=== PATIENT | female | born 1960 | race Caucasian/White ===

== ENCOUNTER 2023-11-09 18:21 | Emergency (ER) | payer OTHER ==
[2023-11-09] MEDS ORDERED: HYDROCODONE/APAP 5/325 MG TAB ONE (18:41)
[2023-11-09] MEDS ORDERED: IBUPROFEN 400 MG TAB ONE (18:41)
--- NOTE | 2023-11-09 19:50 | EDPHYS ---
Physician Documentation [facility] Name: Olesya Gibbs Age: 63 yrs Sex: Female : 1960 Arrival Date: 11/09/2023 Time: 18:21 Bed IW1 Private MD: ED Physician Azael Mcmahon HPI: 11/08 19:18 This 63 yrs old Female presents to ER via Wheelchair with complaints of Fall Injury, rn Arm Pain. 19:18 Details of fall: The patient fell from an upright position, while standing. Onset: The rn symptoms/episode began/occurred just prior to arrival. Associated injuries: The patient sustained Left proximal humerus. Severity of symptoms: At their worst the symptoms were moderate, in the emergency department the symptoms have improved. The patient has not experienced similar symptoms in the past. Patient reports tripped, fall, landed on left arm as it was outstretched. Pain to left upper arm. No head or neck injury no back pain. No rib injury or pain. Denies any elbow or forearm or wrist pain.. Historical: - Allergies: 18:32 No Known Allergies; cm10 - Home Meds: 18:32 None [Active]; cm10 - PMHx: 18:32 None; cm10 - PSHx: 18:32 Partial hysterctomy; cm10 - Immunization history:: Adult Immunizations up to date. - Infectious Disease History:: Denies. - Social history:: Smoking status: Patient denies any tobacco usage or history of. - Family history:: not pertinent. - Hospitalizations: : No recent hospitalization is reported. ROS: 19:18 Constitutional: Negative for fever, chills, and weight loss, Neck: Negative for injury, rn pain, and swelling, Cardiovascular: Negative for chest pain, palpitations, and edema, Respiratory: Negative for shortness of breath, cough, wheezing, and pleuritic chest pain, Abdomen/GI: Negative for abdominal pain, nausea, vomiting, diarrhea, and constipation, Back: Negative for injury and pain, MS/Extremity: Positive for left upper arm pain and injury Skin: Negative for injury, rash, and discoloration, Neuro: Negative for headache, weakness, numbness, tingling, and seizure, Exam: 19:18 Constitutional: This is a well developed, well nourished patient who is awake, alert, rn holding left arm in passive flexion Head/Face: Normocephalic, atraumatic. Neck: No midline cervical tenderness MS/ Extremity: Pulses equal, no cyanosis. Neurovascular intact. Mild tenderness proximal humerus. No clavicular or scapular tenderness. No painful range of motion at the left elbow or wrist. No forearm tenderness or hand tenderness. No open wounds. No significant swelling or ecchymosis Neuro: Awake and alert, GCS 15 Vital Signs: 18:30 BP 124 / 60; Pulse 66; Resp 18; Temp 96.5; Pulse Ox 100% on R/A; Weight 68.04 kg; cm10 Height 5 ft. 2 in. ; Pain 8/10; 19:58 BP 121 / 60; Pulse 65; Resp 17; Temp 97; Pulse Ox 100% ; Pain 2/10; bm8 18:30 Body Mass Index 27.44 (68.04 kg, 157.48 cm) cm10 18:30 Pain Scale: Adult cm10 19:58 Pain Scale: Adult bm8 [place] Coma Score: 19:58 Eye Response: spontaneous(4). Motor Response: obeys commands(6). Verbal Response: bm8 oriented(5). Total: 15. MDM: 18:41 Patient medically screened. rn 19:46 Differential diagnosis: contusion, fracture, sprain, strain. Data reviewed: vital rn signs, nurses notes, radiologic studies, plain films, and as a result, I will discharge patient. Counseling: I had a detailed discussion with the patient and/or guardian regarding the historical points, exam findings, and any diagnostic results supporting the discharge/admit diagnosis, radiology results, the need for outpatient follow up, to return to the emergency department if symptoms worsen or persist or if there are any questions or concerns that arise at home. Response to treatment: the patient's symptoms have mildly improved after treatment, and as a result, I will discharge patient. Special discussion: I discussed with the patient/guardian in detail that at this point there is no indication for admission to the hospital. It is understood, however, that if the symptoms persist or worsen the patient needs to return immediately for re-evaluation. Based on the history and exam findings, there is no indication for further emergent testing or inpatient evaluation. I discussed with the patient/guardian the need to see the orthopedic surgeon for further evaluation of the symptoms. ED course: X-ray images of the left shoulder show proximal humerus fracture, minimally displaced. Patient much better after shoulder immobilization. Patient not from here so she plans on following up with orthopedics for repeat x-ray and MRI of the shoulder when she gets back home. Return precautions given and understood. Will send home with as needed pain medication. I have personally reviewed all of the results, including but not limited to imaging deemed necessary to safely discharge this patient at this time. All results given to and printed out for patient. I personally went over all the results with the patient and answered all questions. Patient will follow-up with PCP and or specialist as discussed. Return precautions given and understood.. 11/08 18:36 Order name: XRAY Humerus LEFT; Complete Time: 20:00 rn 11/08 18:36 Order name: XRAY Shoulder LEFT 2 view; Complete Time: 20:00 rn 11/08 18:40 Order name: Shoulder Immobilizer; Complete Time: 19:58 rn Administered Medications: 18:43 Drug: Ibuprofen PO 800 mg PO once Route: PO; cm10 19:40 Follow up: Response: No adverse reaction bm8 18:43 Drug: HYDROcodone-acetaminophen PO 5 mg-325 mg 1 tabs PO once Route: PO; cm10 19:40 Follow up: Response: No adverse reaction bm8 Disposition Summary: 11/09/23 19:49 Discharge Ordered Notes: Location: Home rn Problem: new rn Symptoms: have improved rn Condition: Stable rn Diagnosis - Nondisplaced transverse fracture of shaft of humerus, left arm, initial encounter rn for closed fracture Followup: rn - With: Corwin Hannah MD - When: 5 - 6 days - Reason: Recheck today's complaints, Re-evaluation by your physician Discharge Instructions: - Discharge Summary Sheet rn - Humerus Fracture Treated With Immobilization rn Forms: - Medication Reconciliation Form rn - Antibiotic r d intern - Prescription Opioid Use rn - Patient Portal Instructions rn - Leadership Thank You Letter rn Prescriptions: - Tramadol 50 mg Oral tablet - take 1 tablet ORAL route every 8 hours as needed; 15 tablet; Refills: 0, rn Product Selection Permitted Signatures: Dispatcher [employer] EDAzael Meza MD MD rn Martinez, Clarissa, RN RN cm10 McDonald, Brad RN bm8 Corrections: (The following items were deleted from the chart) 18:33 18:32 PSHx: None; cm10 cm10 18:33 18:32 PSHx: Total abdominal hysterectomy; cm10 cm10
--- NOTE | 2023-11-09 19:50 | ER ---
Nurse's Notes [facility] Name: Olesya Gibbs Age: 63 yrs Sex: Female : 1960 Arrival Date: 11/09/2023 Time: 18:21 Bed IW1 Private MD: Diagnosis: Nondisplaced transverse fracture of shaft of humerus, left arm, initial encounter for closed fracture Presentation: 11/08 18:30 Chief complaint: Patient states: Walking up the steps and tripped and fell. Pt states cm10 that she was on the first step. Pt reports landing on her left sided and hearing some pops on her left arm. PT reports pain to her upper left arm. Pt denies hitting head, no LOC. Coronavirus screen: Client denies travel out of the [place] in the last 14 days. At this time, the client does not indicate any symptoms associated with coronavirus-19. Ebola Screen: Patient denies travel to an Ebola-affected area in the 21 days before illness onset. No symptoms or risks identified at this time. Initial Sepsis Screen: Does the patient meet any 2 criteria? No. Patient's initial sepsis screen is negative. Does the patient have a suspected source of infection? No. Patient's initial sepsis screen is negative. Risk Assessment: Do you want to hurt yourself or someone else? Patient reports no desire to harm self or others. Onset of symptoms was November 09, 2023. 18:30 Method Of Arrival: Wheelchair cm10 18:30 Acuity: EARLE 4 cm10 Triage Assessment: 18:33 General: Appears in no apparent distress. comfortable, Behavior is calm, cooperative. cm10 Pain: Complains of pain in left bicep Pain does not radiate. Pain currently is 8 out of 10 on a pain scale. Quality of pain is described as aching, Pain began suddenly. Neuro: No deficits noted. Level of Consciousness is awake, alert, obeys commands, Oriented to person, place, time, situation, Appropriate for age. Respiratory: No deficits noted. Airway is patent Respiratory effort is even, unlabored, Respiratory pattern is regular, symmetrical. Musculoskeletal: Reports pain in left bicep. Historical: - Allergies: 18:32 No Known Allergies; cm10 - Home Meds: 18:32 None [Active]; cm10 - PMHx: 18:32 None; cm10 - PSHx: 18:32 Partial hysterctomy; cm10 - Immunization history:: Adult Immunizations up to date. - Infectious Disease History:: Denies. - Social history:: Smoking status: Patient denies any tobacco usage or history of. - Family history:: not pertinent. - Hospitalizations: : No recent hospitalization is reported. Screenin:58 [facility] ED Fall Risk Assessment (Adult) History of falling in the last 3 months, bm8 including since admission Yes- single mechanical fall (1 pt) Confusion or Disorientation No (0 pts) Intoxicated or Sedated No (0 pts) Impaired Gait No (0 pts) Mobility Assist Device Used No (0 pt) Altered Elimination No (0 pt) Score/Fall Risk Level 0 - 2 = Low Risk Oriented to surroundings, Maintained a safe environment, Educated pt \T\ family on fall prevention, incl call for assistance when getting out of bed. Abuse screen: Denies threats or abuse. Nutritional screening: No deficits noted. Tuberculosis screening: No symptoms or risk factors identified. Assessment: 19:58 Reassessment: Patient appears in no apparent distress at this time. Patient and/or bm8 family updated on plan of care and expected duration. Pain level reassessed. Patient is alert, oriented x 3, equal unlabored respirations, skin warm/dry/pink. shoulder immobilizer applied to left arm. pt stated that she had immediate relief when it was supported Patient states feeling better. Patient states symptoms have improved. Vital Signs: 18:30 BP 124 / 60; Pulse 66; Resp 18; Temp 96.5; Pulse Ox 100% on R/A; Weight 68.04 kg; cm10 Height 5 ft. 2 in. ; Pain 8/10; 19:58 BP 121 / 60; Pulse 65; Resp 17; Temp 97; Pulse Ox 100% ; Pain 2/10; bm8 18:30 Body Mass Index 27.44 (68.04 kg, 157.48 cm) cm10 18:30 Pain Scale: Adult cm10 19:58 Pain Scale: Adult bm8 [place] Coma Score: 19:58 Eye Response: spontaneous(4). Motor Response: obeys commands(6). Verbal Response: bm8 oriented(5). Total: 15. ED Course: 18:26 Patient arrived in ED. mg5 18:32 Triage completed. cm10 18:33 Arm band placed on Patient placed in waiting room. cm10 18:36 Azael Mcmahon MD is Attending Physician. rn 19:37 XRAY Humerus LEFT In Process Unspecified. EDMS 19:37 XRAY Shoulder LEFT 2 view In Process Unspecified. EDMS 19:49 Corwin Rossi MD is Referral Physician. rn 19:58 Richar Rossi, RN is Primary Nurse. bm8 19:58 Patient has correct armband on for positive identification. Adult w/ patient. Provided bm8 Education on: post er care. 19:58 No provider procedures requiring assistance completed. Patient did not have IV access bm8 during this emergency room visit. Administered Medications: 18:43 Drug: Ibuprofen PO 800 mg PO once Route: PO; cm10 19:40 Follow up: Response: No adverse reaction bm8 18:43 Drug: HYDROcodone-acetaminophen PO 5 mg-325 mg 1 tabs PO once Route: PO; cm10 19:40 Follow up: Response: No adverse reaction bm8 Medication: 19:58 VIS not applicable for this client. bm8 Outcome: 19:49 Discharge ordered by . rn 19:58 Discharged to home ambulatory, bm8 19:58 Condition: stable 19:58 Discharge instructions given to patient, family, Instructed on discharge instructions, follow up and referral plans. medication usage, safety practices, Demonstrated understanding of instructions, follow-up care, medications, Prescriptions given X 1, 20:00 Patient left the ED. bm8 Signatures: Dispatcher [employer] EDIL Azael Mcmahon MD MD rn Martinez, Clarissa, RN RN 10 Martha Thrasher mg5 Richar Rossi, RN RN bm8 Corrections: (The following items were deleted from the chart) 18:33 18:32 PSHx: None; cm10 cm10 18:33 18:32 PSHx: Total abdominal hysterectomy; cm10 cm10
--- NOTE | 2023-11-09 19:59 | RAD REPORT ---
EXAM DESCRIPTION: RAD - Shoulder Left 2 View - 11/09/2023 7:35 pm CLINICAL HISTORY: Left shoulder pain status post fall FINDINGS: Moderately displaced fracture involves humeral head/. No dislocation seen
--- NOTE | 2023-11-09 19:59 | RAD REPORT ---
EXAM DESCRIPTION: RAD - Humerus Left - 11/09/2023 7:35 pm CLINICAL HISTORY: Left arm pain status post fall FINDINGS: Moderately displaced fracture involves humeral head/. No dislocation seen
[2023-11-09 20:31] VITALS: BP 121/60; TEMP 97; O2SAT 100
== END 2023-11-09 20:00 | disposition home or self-care (01) ==
LOC: ER 18:21
DX: S42.325A Nondisplaced transverse fracture of shaft of humerus, left arm, initial encounter for closed fracture (principal); W18.30XA Fall on same level, unspecified, initial encounter
CPT/HCPCS: 99283